=== PATIENT | male | born 1945 | race Caucasian/White ===

== ENCOUNTER 2017-10-05 13:43 | Emergency (ER) | payer MEDICARE, OTHER ==
[2017-10-05 14:10] VITALS: BP 125/70
--- NOTE | 2017-10-05 14:38 | UC ---
Skin Complaint HPI - HPI Summary HPI Summary: PT WITH KNOWN DIABETIC PERIPHERAL NEUROPATHY COMES IN WITH AN ULCER ON THE BOTTOM OF HIS RIGHT FOOT SUSTAINED AFTER USING A PUMICE STONE ON A CALLOUS 8 DAYS AGO. PATIENT WAS SEEN AT THE ME AND TOLD THAT IT WAS NOT INFECTED AND JUST TO KEEP IT CLEAN AND COVERED. THIS MORNING HE WOKE UP WITH HIS RIGHT ANKLE RED AND WARM AND SWOLLEN. PATIENT DENIES PAIN. NO FEVER. NO DRAINAGE FROM THE ULCER. PATIENT HAS HAD HIS RIGHT FOURTH TOE AMPUTATED ALREADY. NO FEVER. - History of Current Complaint Chief Complaint: UCWounds Time Seen by Provider: 10/05/17 14:16 Stated Complaint: HOLE IN BOTTOM OF FOOT AND SWOLLEN ANKLE Hx Obtained From: Patient Onset/Duration: Gradual Onset, Lasting Days, Still Present Timing: Constant Onset Severity: Moderate Current Severity: Moderate Pain Intensity: 0 Pain Scale Used: 0-10 Numeric Location: Foot (Right) Character: Redness Aggravating Factor(s): Nothing Alleviating Factor(s): Nothing Associated Signs & Symptoms: Positive: Joint Swelling. Negative: Nausea, Fever , Chills - Allergy/Home Medications Allergies/Adverse Reactions: Allergies Allergy/AdvReac Type Severity Reaction Status Date / Time No Known Allergies Allergy Verified 10/05/17 13:57 Review of Systems Constitutional: Negative Skin: Other - ULCER RIGHT FOOT Respiratory: Negative Cardiovascular: Negative Gastrointestinal: Negative Musculoskeletal: Decreased ROM, Edema All Other Systems Reviewed And Are Negative: Yes PMH/Surg Hx/FS Hx/Imm Hx Endocrine History: Diabetes Cardiovascular History: Cardiac Disease, Hypertension, Atrial Fibrillation Cancer History: Prostate Cancer - Surgical History Surgical History: Yes Surgery Procedure, Year, and Place: Prostatectomy 2010;. HEART CATH (NO STENTS) ; - Family History Known Family History: Positive: Hypertension - Social History Alcohol Use: None Substance Use Type: None Smoking Status (MU): Former Smoker Type: Cigarettes Length of Time of Smoking/Using Tobacco: 38 years Have You Smoked in the Last Year: No - Immunization History Most Recent Influenza Vaccination: none Most Recent Tetanus Shot: up to date with ME Most Recent Pneumonia Vaccination: within last 5 years Physical Exam Triage Information Reviewed: Yes Appearance: Well-Appearing, No Pain Distress, Well-Nourished Vital Signs: Initial Vital Signs Temp 98.9 F 10/05/17 14:00 Pulse 94 10/05/17 14:00 Resp 16 05/15/18 14:00 BP 125/70 10/05/17 14:00 Pulse Ox 95 10/05/17 14:00 Vital Signs Reviewed: Yes Eyes: Positive: Conjunctiva Clear ENT: Positive: Hearing grossly normal Neck: Positive: Supple Respiratory: Positive: No respiratory distress, No accessory muscle use Cardiovascular: Positive: Pulses Normal Abdomen Description: Positive: Soft Musculoskeletal: Positive: ROM Limited @ - RIGHT ANKLE, Edema @ - RIGHT ANKLE Neurological: Positive: Alert Psychological: Positive: Age Appropriate Behavior Skin: Positive: Other - 2.5 CM ROUND ULCER PLANTAR SURFACE RIGHT FOOT UNDER METATARSAL HEADS. NO DRAINAGE. RIGHT ANKLE SWOLLEN, RED AND WARM TO TOUCH Course/Dx - Course Course Of Treatment: GIVEN CONCERN FOR NON HEALING ULCER AND SWOLLEN/RED/HOT ANKLE IN A DIABETIC WITH KNOWN PERIPHERAL NEUROPATHY AND PREVIOUS TOE AMPUTATION RECOMMENDED TRANSFER TO ED FOR FURTHER EVALUATION. PT DECLINES TRANSFER TO ED. ADVISED THAT HE COULD BE RISKING WORSENING OF HIS CONDITION THAT COULD POSE A THREAT TO LIFE, HEALTH AND MEDICAL SAFETY. HE VERBALIZES UNDERSTANDING AND CONTINUES TO DECLINE TRANSFER TODAY. STATES HE WILL GO TOMORROW. - Differential Diagnoses - Skin Complaint Differential Diagnoses: Cellulitis, Other - SEPTIC JOINT, DIABETIC ULCER - Diagnoses Provider Diagnoses: 1. RIGHT FOOT ULCERATION. 2. RIGHT ANKLE SWELLING/EDEMA Discharge - Sign-Out/Discharge Documenting (check all that apply): Discharge/Admit/Transfer - Discharge Plan Condition: Stable Disposition: AGAINST MEDICAL ADVICE Referrals: Alma Rosa Rodriguez [Primary Care Provider] - - Billing Disposition and Condition Condition: STABLE Disposition: [facility]
== END 2017-10-05 14:30 | disposition left against medical advice (07) ==
LOC: UCEAST 13:43
DX: E11.621 Type 2 diabetes mellitus with foot ulcer (principal); L97.511 Non-pressure chronic ulcer of other part of right foot limited to breakdown of skin; Z79.84 Long term (current) use of oral hypoglycemic drugs; R60.0 Localized edema; I48.91 Unspecified atrial fibrillation; Z79.01 Long term (current) use of anticoagulants; I10 Essential (primary) hypertension; Z85.46 Personal history of malignant neoplasm of prostate; Z89.421 Acquired absence of other right toe(s); Z87.891 Personal history of nicotine dependence
CPT/HCPCS: 99212; G0463

== ENCOUNTER 2021-12-22 14:36 | Inpatient (IN) ==
[2021-12-22 16:42] LABS: ABS Basophils 0.1 10^3/ul (0-0.2); ABS Lymphocytes 0.9 10^3/ul (1.0-4.8); ABS Neutrophils 11.6 10^3/ul (1.5-7.7); Eosinophil % 0.3 %; Hematocrit 39 % (42-52); Hemoglobin 12.5 g/dL (14.0-18.0); Lymphocyte % 6.7 %; Mean Corpuscular HGB Conc 32 g/dL (31-36); Mean Corpuscular Hemoglobin 25 pg (27-31); Mean Corpuscular Volume 79 fL (80-94); Mean Platelet Volume 6.9 fL (7.4-10.4); Platelet Count 393 10^3/uL (150-450); Red Blood Count 4.91 10^6 /uL (4.18-5.48); Red Cell Distribution Width 15 % (10-15); White Blood Count 13.6 10^3/uL (3.5-10.8)
[2021-12-22] MEDS ORDERED: Vancomycin 1,000 MG in NS 0.9% 250 ml 250 ML IVPB ONE (17:16)
[2021-12-22 17:17] LABS: Activated Partial Thrombo Time 34.3 seconds (26.0-38.0); INR 1.47 (0.89-1.11)
[2021-12-22 17:33] LABS: ALT 45 U/L (7-52); AST 30 U/L (13-39); Albumin 3.8 g/dL (3.2-5.2); Alkaline Phosphatase 95 U/L (35-149); Blood Urea Nitrogen 23 mg/dL (6-24); C Reactive Protein 164.02 mg/L (<8.01); CO2 Carbon Dioxide 26 mmol/L (22-32); Calcium 9.8 mg/dL (8.6-10.3); Chloride 98 mmol/L (101-111); Globulin 3.7 g/dL (2-4); Glucose 178 mg/dL (70-100); Sodium 132 mmol/L (135-145); Total Protein 7.5 g/dL (6.4-8.9); eGFR CKD-EPI 74.5 (>60)
[2021-12-22 17:41] LABS: Anion Gap 8 mmol/L (2-11); Potassium 6.1 mmol/L (3.5-5.0)
[2021-12-22] MEDS ORDERED: NS 0.9% 1000 ml BAG 1,000 ML IV ONE ×2 (17:55→18:08)
[2021-12-22] MEDS ORDERED: Calcium Gluconate 1 GM/10 ML VIAL (in Pyxis) IV PUSH ONE (18:09)
[2021-12-22] MEDS ORDERED: Dextrose 50% Syringe 50 ml 25 GM/50 ML SYRINGE IV PUSH ONE ×2 (18:09→18:10)
[2021-12-22] MEDS ORDERED: CALCIUM GLUCONATE 1GM/50ML NS BAG IV ONE (18:30)
[2021-12-22 19:18] LABS: Urine Appearance Clear; Urine Bilirubin Negative (Negative); Urine Blood Negative (Negative); Urine Color Yellow; Urine Glucose Negative (Negative); Urine Ketones Negative (Negative); Urine Nitrite Negative (Negative); Urine Protein Negative (Negative); Urine Specific Gravity 1.015 (1.005-1.030); Urine Urobilinogen 0.2 (Negative) (Negative)
[2021-12-22 19:36] LABS: Calcium 7.9 mg/dL (8.6-10.3); Potassium 4.6 mmol/L (3.5-5.0); eGFR CKD-EPI 89.6 (>60)
[2021-12-22] MEDS ORDERED: Dextrose 50% Syringe 50 ml 25 GM/50 ML SYRINGE IV PUSH PRN (21:36)
[2021-12-22 22:23] LABS: Total Iron Binding Capacity 315 mcg/dL (250-450); Transferrin 225 mg/dL (203-362)
[2021-12-22 22:30] LABS: % Iron Saturation 6 % (15-55); Iron < 20 ug/dL (50-212); Unsaturated Iron Binding 295 ug/dL
[2021-12-22 22:35] LABS: Digoxin 1.1 ng/ml (0.8-2.0)
[2021-12-22 22:42] LABS: Ferritin 239.8 ng/mL (24-336)
[2021-12-22] MEDS ORDERED: NS 0.9% 1000 ml BAG 1,000 ML IV SCH (22:45)
[2021-12-22] MEDS ORDERED: metroNIDAZOLE IV 500 MG/100ML - ED ONCE IVPB ONE (23:00)
[2021-12-22] MEDS ORDERED: Vancomycin per Pharmacy 1 EA NOTE FOLLOW UP SCH (23:00)
[2021-12-22] MEDS: Cefepime 2 GM in Dextrose 2 GM/50 ML BAG IV SCH (23:27)
[2021-12-23] MEDS: Heparin 5000 UNITS/ML 1 mL VIAL IV SCH ×2 (00:33→13:12)
[2021-12-23] MEDS: Heparin DRIP 25,000 UNITS BAG 25,000 UNITS/500 ML BAG IV SCH ×2 (00:35→13:16)
[2021-12-23] MEDS ORDERED: Vancomycin 1,000 MG in NS 0.9% 250 ml 250 ML IVPB ONE (06:00)
[2021-12-23] MEDS ORDERED: Vancomycin 1000 MG in NS 0.9% 250 ML IVPB SCH (06:00)
[2021-12-23 06:21] LABS: ABS Eosinophils 0.1 10^3/ul (0-0.6); ABS Lymphocytes 0.9 10^3/ul (1.0-4.8); ABS Monocytes 0.6 10^3/ul (0-0.8); ABS Neutrophils 6.3 10^3/ul (1.5-7.7); Hematocrit 30 % (42-52); Hemoglobin 9.7 g/dL (14.0-18.0); Lymphocyte % 11.4 %; Mean Corpuscular HGB Conc 32 g/dL (31-36); Mean Corpuscular Hemoglobin 26 pg (27-31); Mean Corpuscular Volume 79 fL (80-94); Mean Platelet Volume 6.3 fL (7.4-10.4); Platelet Count 253 10^3/uL (150-450); Red Blood Count 3.77 10^6 /uL (4.18-5.48); Red Cell Distribution Width 15 % (10-15); White Blood Count 7.9 10^3/uL (3.5-10.8)
[2021-12-23] MEDS ORDERED: metroNIDAZOLE IV 500 MG/100ML 500 MG/100 ML BAG IVPB SCH ×2 (08:00→08:30)
[2021-12-23 08:13] LABS: Calcium 8.3 mg/dL (8.6-10.3); Magnesium 1.8 mg/dL (1.9-2.7); Potassium 5.3 mmol/L (3.5-5.0)
[2021-12-23 08:15] LABS: eGFR CKD-EPI 89.9 (>60)
[2021-12-23] MEDS: Cefepime 2 GM in Dextrose 2 GM/50 ML BAG IV SCH ×2 (10:08→21:14)
[2021-12-23] MEDS: Enoxaparin 60 MG/0.6 ML SYR SUBCUT SCH (18:18)
[2021-12-24] MEDS ORDERED: Vancomycin Trough Check NOTE FOLLOW UP ONE (05:30)
[2021-12-24] MEDS: Enoxaparin 60 MG/0.6 ML SYR SUBCUT SCH ×2 (05:51→17:33)
[2021-12-24 06:22] LABS: ABS Eosinophils 0.1 10^3/ul (0-0.6); ABS Lymphocytes 0.7 10^3/ul (1.0-4.8); ABS Monocytes 0.6 10^3/ul (0-0.8); ABS Neutrophils 5.7 10^3/ul (1.5-7.7); Eosinophil % 1.4 %; Hematocrit 31 % (42-52); Hemoglobin 10.2 g/dL (14.0-18.0); Lymphocyte % 9.4 %; Mean Corpuscular HGB Conc 33 g/dL (31-36); Mean Corpuscular Hemoglobin 25 pg (27-31); Mean Corpuscular Volume 78 fL (80-94); Mean Platelet Volume 6.6 fL (7.4-10.4); Platelet Count 248 10^3/uL (150-450); Red Cell Distribution Width 15 % (10-15); White Blood Count 7.1 10^3/uL (3.5-10.8)
[2021-12-24 06:54] LABS: Albumin 3.1 g/dL (3.2-5.2); Albumin/Globulin Ratio 1.1 (1-3); Calcium 8.7 mg/dL (8.6-10.3); Globulin 2.7 g/dL (2-4); Potassium 4.5 mmol/L (3.5-5.0); Total Bilirubin 0.5 mg/dL (0.2-1.0); Total Protein 5.8 g/dL (6.4-8.9); eGFR CKD-EPI 92.9 (>60)
[2021-12-24] MEDS: Cefepime 2 GM in Dextrose 2 GM/50 ML BAG IV SCH ×2 (08:48→22:47)
[2021-12-25] MEDS: Enoxaparin 60 MG/0.6 ML SYR SUBCUT SCH (04:57)
[2021-12-25 06:11] LABS: ABS Eosinophils 0.1 10^3/ul (0-0.6); ABS Monocytes 0.8 10^3/ul (0-0.8); ABS Neutrophils 6.8 10^3/ul (1.5-7.7); Hematocrit 31 % (42-52); Hemoglobin 10.2 g/dL (14.0-18.0); Lymphocyte % 11.6 %; Mean Corpuscular HGB Conc 33 g/dL (31-36); Mean Corpuscular Hemoglobin 25 pg (27-31); Mean Corpuscular Volume 77 fL (80-94); Mean Platelet Volume 6.8 fL (7.4-10.4); Platelet Count 263 10^3/uL (150-450); Red Blood Count 4.06 10^6 /uL (4.18-5.48); Red Cell Distribution Width 15 % (10-15); White Blood Count 8.7 10^3/uL (3.5-10.8)
[2021-12-25 06:29] LABS: Calcium 8.8 mg/dL (8.6-10.3); Potassium 4.3 mmol/L (3.5-5.0); eGFR CKD-EPI 89.9 (>60)
[2021-12-25] MEDS: Cefepime 2 GM in Dextrose 2 GM/50 ML BAG IV SCH ×3 (08:58→21:37)
[2021-12-26 05:31] LABS: ABS Eosinophils 0.1 10^3/ul (0-0.6); ABS Lymphocytes 0.9 10^3/ul (1.0-4.8); ABS Monocytes 0.8 10^3/ul (0-0.8); ABS Neutrophils 6.3 10^3/ul (1.5-7.7); Eosinophil % 1.7 %; Hematocrit 29 % (42-52); Lymphocyte % 10.8 %; Mean Corpuscular HGB Conc 35 g/dL (31-36); Mean Corpuscular Hemoglobin 27 pg (27-31); Mean Corpuscular Volume 78 fL (80-94); Mean Platelet Volume 6.7 fL (7.4-10.4); Platelet Count 255 10^3/uL (150-450); Red Blood Count 3.72 10^6 /uL (4.18-5.48); Red Cell Distribution Width 15 % (10-15); White Blood Count 8.1 10^3/uL (3.5-10.8)
[2021-12-26 05:48] LABS: Albumin 3.1 g/dL (3.2-5.2); Albumin/Globulin Ratio 1.1 (1-3); Calcium 8.8 mg/dL (8.6-10.3); Globulin 2.7 g/dL (2-4); Potassium 4.4 mmol/L (3.5-5.0); Total Bilirubin 0.4 mg/dL (0.2-1.0); Total Protein 5.8 g/dL (6.4-8.9); eGFR CKD-EPI 90.9 (>60)
[2021-12-26] MEDS ORDERED: Lidocaine 1% VIAL 10 MG/ML VIAL ONE (08:03)
[2021-12-26] MEDS ORDERED: Heparin 2 UNITS/ML IVPREMIX 3,000 UNIT/1,500 ML BAG IV ONE (08:04)
[2021-12-26] MEDS ORDERED: Iohexol 350 (CONTRAST) 100 ML PAK IV ONE ×2 (08:04→10:09)
[2021-12-26] MEDS ORDERED: Midazolam 5 mg/5 ml VIAL 1 mg/ml 5 ml VIAL (5 mg) ONE (08:04)
[2021-12-26] MEDS ORDERED: fentaNYL 100 mcg/2 ml 50 MCG/ML VIAL ONE (08:04)
[2021-12-26] MEDS ORDERED: Heparin 1,000 UNIT/ML 10 ml (10,000 UNITS) CATHLAB/DIALYSIS ONE ×2 (08:57→10:54)
[2021-12-26] MEDS ORDERED: nitroGLYCERIN DRIP 25,000 MCG/250 ML BTL ONE (10:23)
[2021-12-26] MEDS: Cefepime 2 GM in Dextrose 2 GM/50 ML BAG IV SCH ×2 (15:07→21:23)
[2021-12-26] MEDS ORDERED: Enoxaparin 80 MG/0.8 ML SYR SUBCUT SCH (20:00)
[2021-12-26] MEDS: Enoxaparin 60 MG/0.6 ML SYR SUBCUT SCH (21:21)
[2021-12-27 06:01] LABS: ABS Eosinophils 0.2 10^3/ul (0-0.6); ABS Lymphocytes 0.8 10^3/ul (1.0-4.8); ABS Monocytes 0.7 10^3/ul (0-0.8); ABS Neutrophils 6.6 10^3/ul (1.5-7.7); Eosinophil % 1.9 %; Hematocrit 29 % (42-52); Hemoglobin 9.6 g/dL (14.0-18.0); Lymphocyte % 9.8 %; Mean Corpuscular HGB Conc 33 g/dL (31-36); Mean Corpuscular Hemoglobin 25 pg (27-31); Mean Corpuscular Volume 78 fL (80-94); Mean Platelet Volume 6.7 fL (7.4-10.4); Nucleated Red Blood Cells % 0.1; Platelet Count 259 10^3/uL (150-450); Red Blood Count 3.79 10^6 /uL (4.18-5.48); Red Cell Distribution Width 15 % (10-15); White Blood Count 8.2 10^3/uL (3.5-10.8)
[2021-12-27 06:21] LABS: Albumin 3.1 g/dL (3.2-5.2); Albumin/Globulin Ratio 1.1 (1-3); Calcium 8.8 mg/dL (8.6-10.3); Globulin 2.7 g/dL (2-4); Potassium 4.6 mmol/L (3.5-5.0); Total Bilirubin 0.4 mg/dL (0.2-1.0); Total Protein 5.8 g/dL (6.4-8.9); eGFR CKD-EPI 96.3 (>60)
[2021-12-27] MEDS: Enoxaparin 60 MG/0.6 ML SYR SUBCUT SCH ×2 (08:54→20:02)
[2021-12-27] MEDS: Cefepime 2 GM in Dextrose 2 GM/50 ML BAG IV SCH ×2 (10:32→22:28)
[2021-12-28] MEDS: Cefepime 2 GM in Dextrose 2 GM/50 ML BAG IV SCH ×2 (09:50→21:57)
[2021-12-28] MEDS ORDERED: Enoxaparin 60 MG/0.6 ML SYR SUBCUT SCH (13:00)
[2021-12-28] MEDS ORDERED: Insulin GLARGINE 100 un/ml 10 ml VIAL SUBCUT SCH (21:00)
[2021-12-29] MEDS ORDERED: Enoxaparin 60 MG/0.6 ML SYR SUBCUT SCH (08:00)
[2021-12-29] MEDS: Cefepime 2 GM in Dextrose 2 GM/50 ML BAG IV SCH (10:13)
[2021-12-29 11:54] VITALS: BP 116/71
== END 2021-12-29 14:10 | disposition home or self-care (01) | DRG 854 ==
LOC: ED 14:36 → EDHOLD 21:30 → SUATTDRO 21:30 → MEDTELE 12-23 01:20 → SSU 12-26 22:53
PROVIDERS: ADMIT Internal Medicine; ATTEND Internal Medicine